=== PATIENT | male | born 1950 | race Hispanic/Latino ===

== ENCOUNTER 2022-05-18 07:35 | Outpatient (CLI) | payer OTHER ==
--- NOTE | 2022-05-18 08:45 | Cat Scan Report ---
CT CHEST WITHOUT CONTRAST INDICATION / CLINICAL INFORMATION: F17.210. Nicotine dependence TECHNIQUE: Axial CT images were obtained through the chest without contrast. All CT scans at this location are p erformed using CT dose reduction for ALARA by means of automated exposure control. COMPARISON: None available. FINDINGS: THORACIC AORTA: Mild atherosclerotic calcification without acute abnormality. CORONARY ARTERY CALCIFICATION: Moderate-severe coronary artery calcifications. HEART: There is mild cardiac enlargement. Trace pericardial effusion. MEDIASTINUM / CALEB: No significant thoracic lymphadenopathy. Small hiatal hernia. LUNGS/PLEURA: No acute interstitial or airspace disease. No suspicious nodule or mass. No pleural eff usion or pneumothorax. ADDITIONAL CHEST FINDINGS: None. UPPER ABDOMEN: Gallbladder is partially contracted. Small gallstones are suspected at the fundus. The re is mild gallbladder wall thickening. Partially imaged left renal cyst. SKELETAL SYSTEM: Degenerative changes in the spine. No acute abnormality. IMPRESSION: 1. No acute findings in the chest. No suspicious nodule or mass. 2. Incidentally noted cholelithiasis with mild gallbladder wall thickening at the fundus. This may be due to partial contraction of the gallbladder. Recommend correlation with right upper quadrant ultra sound, as clinically indicated. 3. Other incidental findings as above. Signer Name: Jason Almonte MD Signed: 05/18/2022 8:40 AM Workstation Name: [id number]
== END 2022-05-18 07:36 | disposition home or self-care (01) ==
LOC: CT 07:35
DX: I71.2 Thoracic aortic aneurysm, without rupture (principal); I25.10 Atherosclerotic heart disease of native coronary artery without angina pectoris; K44.9 Diaphragmatic hernia without obstruction or gangrene; F17.210 Nicotine dependence, cigarettes, uncomplicated
CPT/HCPCS: 71250